=== PATIENT | male | born 1995 | race Caucasian/White ===

== ENCOUNTER 2020-01-31 08:26 | Emergency (ER) | payer SELFPAY ==
[~2020-01-31] VITALS: Ht 177.8 cm; Wt 81.8 kg
[2020-01-31 08:29] VITALS: Ht 177.8 cm; Wt 81.8 kg
[2020-01-31] MEDS ORDERED: KEFLEX500 MG PO (09:30)
[2020-01-31 10:15] VITALS: BP 129/75
== END 2020-01-31 10:16 | disposition home or self-care (01) ==
LOC: D.ER 08:26
DX: J02.0 Streptococcal pharyngitis (principal)